=== PATIENT | male | born 1995 | race Hispanic/Latino ===

== ENCOUNTER 2018-07-09 21:09 | Emergency (ER) | payer BC, SELFPAY ==
[2018-07-09] MEDS ORDERED: KETOROLAC 30 MG/ML INJ ONE (21:49)
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
== END 2018-07-09 22:21 | disposition home or self-care (01) ==
LOC: ER 21:09
DX: S50.11XA Contusion of right forearm, initial encounter (principal); S50.12XA Contusion of left forearm, initial encounter; V49.50XA Passenger injured in collision with unspecified motor vehicles in traffic accident, initial encounter
CPT/HCPCS: 96372; 99284